=== PATIENT | female | born 1990 | race Two or more races ===

== ENCOUNTER 2023-09-13 16:50 | Inpatient (IN) | payer OTHER ==
[~2023-09-13] VITALS: Ht 167.6 cm; Wt 88.0 kg
[2023-09-13] MEDS ORDERED: BETAMETHASONE ACET (30mg/5ml) 5ml Vial 6mg/ml ONE (17:05)
[2023-09-13] MEDS ORDERED: LACTATED RINGER'S 1,000 ML IV ONE (17:15)
[2023-09-13 17:27] LABS: Basophils # (auto) 0 10 ^3/uL (0-0.2); Basophils % (auto) 0.4 % (0.0-2.0); Eosinophils # (auto) 0.1 10 ^3/uL (0-0.8); Eosinophils % (auto) 0.7 % (0.0-7.0); Hemoglobin 12.7 g/dL (12.2-16.2); Lymphocytes # (auto) 1.4 10 ^3/uL (0.4-5.4); Lymphocytes % (auto) 13.2 % (10.0-50.0); Mean Corpuscular Hemoglobin 32.3 pg (28.0-32.0); Mean Corpuscular Hgb Conc. 34.3 g/dL (32.0-36.0); Mean Corpuscular Volume 94.1 fL (80.0-100.0); Monocytes # (auto) 0.9 10 ^3/uL (0-1.3); Monocytes % (auto) 8.6 % (0.0-12.0); Neutrophils # (auto) 8.3 10 ^3/uL (1.6-8.6); Neutrophils % (auto) 77.1 % (37.0-80.0); Nucleated Red Blood Cells % 0.2 %; Red Blood Cells 3.93 10^6/uL (4.0-5.20); Red Cell Distribution Width 14.2 % (11.8-14.3); White Blood Cell 10.8 10^3/uL (4.4-10.8)
[2023-09-13 17:50] LABS: Albumin 3.5 g/dL (3.2-4.8); Alkaline Phosphatase 151 U/L (46-116); Anion Gap 8 (5-15); Aspartate Aminotransferase 9 U/L (13-40); BUN/Creatinine Ratio 11.1 (10.0-20.0); Blood Urea Nitrogen 6 mg/dL (9-23); Carbon Dioxide 22 mmol/L (20-30); Chloride 107 mmol/L (98-107); Glucose 92 mg/dL (74-106); Potassium 3.9 mmol/L (3.5-5.1); Sodium 137 mmol/L (136-145)
[2023-09-13] MEDS: LACTATED RINGER'S 1,000 ML IV SCH (17:50)
[2023-09-13] MEDS: AMPICILLIN SOD 2GM INJ 2 GM in SODIUM CHL 0.9% 100 ML IV ONE (17:50)
[2023-09-13 17:51] LABS: Bilirubin, Total 0.7 mg/dL (0.2-1.0); Total Protein 5.9 g/dL (5.7-8.2)
[2023-09-13] MEDS ORDERED: LACTATED RINGER'S 1,000 ML IV SCH (18:00)
[2023-09-13] MEDS ORDERED: TERBUTALINE SULFATE 1 MG/ML 1ML VIAL SC SCH (18:00)
[2023-09-13 18:03] LABS: Alanine Aminotransferase < 9 U/L (7-40)
[2023-09-13] MEDS: MAGNESIUM SULFATE 100 ML IV ONE (18:11)
[2023-09-13] MEDS: TERBUTALINE SULFATE 1 MG/ML 1ML VIAL SC ONE (18:24)
[2023-09-13 18:28] LABS: INR 0.93 (0.9-1.15); Partial Thromboplastin Time 25.1 SEC (24.5-34.5); Prothrombin Time 9.9 sec (9.3-11.8)
[2023-09-13] MEDS: MAGNESIUM SULFATE 40MG/ML 1,000 ML IV SCH (18:31)
[2023-09-14 09:51] LABS: Hepatitis B Surface Antigen Negative (Negative)
[2023-09-14 10:13] LABS: Hepatitis C Antibody Negative (Negative)
== END 2023-09-13 19:07 | disposition short-term general hospital (02) | DRG 566 ==
LOC: LDRP 16:50 → OBSVTOIN 17:09
PROVIDERS: ADMIT Obstetrics & Gynecology; ATTEND Obstetrics & Gynecology
DX: O42.913 Preterm premature rupture of membranes, unspecified as to length of time between rupture and onset of labor, third trimester (principal); O44.03 Complete placenta previa NOS or without hemorrhage, third trimester; Z3A.34 34 weeks gestation of pregnancy
CPT/HCPCS: 36415; 59025; 76805; 80053; 81002; 83735; 85025; 85610; 85730; 86592; 86703; 86762; 86803; 86850; 86900; 86901; 87340; 94760; 96360; 96361; 96372; G0378